=== PATIENT | male | born 1980 | race Caucasian/White ===

== ENCOUNTER 2020-12-29 11:17 | Emergency (ER) | payer OTHER ==
[2020-12-29 11:28] VITALS: BP 140/95; PULSE 83; TEMP 98.3; BMI 24.3
[2020-12-29 14:05] LABS: CHLORIDE 108 mmol/L (98-107); POTASSIUM 4.1 mmol/L (3.5-5.1); SODIUM 140 mmol/L (136-145)
[2020-12-29 14:07] LABS: CALCIUM 9.2 mg/dL (8.5-10.1)
[2020-12-29 14:08] LABS: ANION GAP 4 MMOL/L (8-16); BLOOD UREA NITROGEN 15.7 mg/dL (7-18); CO2 29 mmol/L (21-32); GLUCOSE,RANDOM 94 mg/dL (74-106)
[2020-12-29 14:11] LABS: BASO % 0.9 % (0-2.0); CREATININE 1.2 mg/dL (0.55-1.3); EOS % 1.1 % (0-4.5); HEMATOCRIT 46.4 % (35.4-49); HEMOGLOBIN 15.8 GM/dL (11.7-16.9); LYMPH % 18.5 % (8-40); MCH 27.9 pg (25.7-33.7); MEAN CELL VOLUME 82.2 fl (80-96); MEAN PLT VOLUME 9.9 fl (7.5-11.1); MONO % 7.3 % (3.8-10.2); NEUT % 72.2 % (42.8-82.8); PLATELET COUNT 173 K/MM3 (134-434); RBC 5.64 M/mm3 (4.00-5.60); RDW 13.4 % (11.9-15.9); SGOT/AST 17 U/L (15-37); SGPT/ALT 28 U/L (13-61); WHITE BLOOD COUNT 7.1 K/mm3 (4.0-10.0)
[2020-12-29 14:12] LABS: BILIRUBIN,TOTAL 0.4 mg/dL (0.2-1); TOT PROT 7.5 g/dl (6.4-8.2)
[2020-12-29 14:13] LABS: ALK PHOS 86 U/L (45-117)
== END 2020-12-29 15:46 | disposition home or self-care (01) ==
LOC: JER 11:17
DX: R07.9 Chest pain, unspecified (principal)
CPT/HCPCS: 36415; 71046-TC-FY; 80053; 82550; 84484; 85025; 93005; 93010; 99285-25